=== PATIENT | male | born 1930 | race Caucasian/White ===

== ENCOUNTER 2018-12-02 14:57 | Emergency (ER) | payer MEDICARE ==
[~2018-12-02] VITALS: Ht 185.4 cm; Wt 81.6 kg
[2018-12-02 17:31] VITALS: BP 138/61
== END 2018-12-02 17:51 | disposition home or self-care (01) ==
LOC: ER 14:59
DX: S01.511A Laceration without foreign body of lip, initial encounter (principal); R51 Headache; Z95.0 Presence of cardiac pacemaker; W01.198A Fall on same level from slipping, tripping and stumbling with subsequent striking against other object, initial encounter; Y93.01 Activity, walking, marching and hiking; Y92.480 Sidewalk as the place of occurrence of the external cause; Y99.8 Other external cause status
CPT/HCPCS: 12014; 70450; 70486; 99284; A6402 ×2; A6403 ×2